=== PATIENT | male | born 1995 | race Caucasian/White ===

== ENCOUNTER 2018-09-26 17:30 | Emergency (ER) | payer BC, OTHER ==
[~2018-09-26] VITALS: Ht 172.7 cm; Wt 124.7 kg
[2018-09-26] MEDS ORDERED: RX-MUPIROCIN (BACTROBAN) 2% OINT 22 GM TUBE TOP STA (19:11)
--- NOTE | 2018-09-26 19:17 | ED Upper Extremity ---
General Chief Complaint: Laceration Stated Complaint: R HAND LACERATION Nursing Triage Note: PT REPORTS CUTTING RIGHT TOP OF HAND LAST NIGHT WHILE TRYING TO OPEN A GLASS BOTTLE. PT HAS HAD HAND IN SAME DRESSING LAST NIGHT AND HAD NOT ISSUES WITH BLEEDING. Nursing Sepsis Screen: No Definite Risk History of Present Illness Date Seen by Provider: Sep 26, 2018 Time Seen by Provider: 19:00 Initial Comments 22-year-old male presents with a laceration to the dorsum of his right hand. He is right-hand dominant. This happened at approximately 0300 this morning. He and his friends were intoxicated, so he didn't present until this evening. He cut it on a glass bottle and reports his last tetanus less than 5 years ago. Pain/Injury Location: right hand Method of Injury: incised Allergies and Home Medications Allergies Coded Allergies: No Known Drug Allergies (Unverified , 09/26/18) Home Medications Cephalexin 500 Mg Tablet, 500 MG PO TID Prescribed by: HAMMAD BARAHONA on 09/26/181917 Patient Home Medication List Home Medication List Reviewed: Yes Review of Systems Constitutional: no symptoms reported Skin: see HPI, other (laceration right hand) All Other Systems Reviewed Negative Unless Noted: Yes Past Nwfmpdz-Gfbldj-Vuormf Hx Past Med/Social Hx: Reviewed Nursing Past Med/Soc Hx Patient Social History Alcohol Use: Denies Use Recreational Drug Use: No Type Used: Cigarettes Recent Foreign Travel: No Contact w/Someone Who Travel: No Recent Infectious Disease Expo: No Recent Hopitalizations: No Physical Abuse: No Sexual Abuse: No Immunizations Up To Date Tetanus Booster (TDap): Less than 5yrs Seasonal Allergies Seasonal Allergies: No Past Medical History Respiratory: No Cardiac: No Neurological: No Genitourinary: No Gastrointestinal: No Musculoskeletal: No Endocrine: No HEENT: No Cancer: No Psychosocial: No Integumentary: No Blood Disorders: No Physical Exam Vital Signs Vital Signs - First Documented 09/26/18 17:37 Temp 97.0 Pulse 114 Resp 16 B/P (MAP) 166/100 (122) Pulse Ox 98 Capillary Refill : Less Than 3 Seconds Height, Weight, BMI Height: 5'8.00" Weight: 275lbs. oz. 124.909954yg; BMI Method:Stated General Appearance: WD/WN, no apparent distress Neck: non-tender, full range of motion, supple, normal inspection Cardiovascular: normal peripheral pulses, regular rate, rhythm, no murmur Respiratory: chest non-tender, lungs clear, normal breath sounds Hand: normal ROM, Right, laceration (4 cm x 2 cm, dorsum), soft tissue tendern ess Neurologic/Psychiatric: no motor/sensory deficits, alert, normal mood/affect, oriented x 3 Skin: normal color, warm/dry Progress/Results/Core Measures Results/Orders My Orders Orders - HAMMAD BARAHONA Rx-Mupirocin 2% Oint (Rx-Bactroban) (09/26/18 19:11) Vital Signs/I&O 09/26/18 09/26/18 17:37 19:34 Temp 97.0 97.0 Pulse 114 114 Resp 16 16 B/P (MAP) 166/100 (122) 166/100 (122) Pulse Ox 98 98 Blood Pressure Mean: 122 Progress Progress Note : Time: 19:00 Progress Note Patient seen and evaluated, laceration irrigated with 500 ML's of sterile saline with Hibiclens. Bactroban ointment applied and sterile bulky dressing. Discussed with the patient that he is beyond the time limit for closure of the wound. He will need to close by secondary intentions. He understands the risk of infection with this is great. Stressed the importance of him establishing care at [facility] or [facility] for wound care. Discharge instructions and return precautions were reviewed with him. Departure Impression Primary Impression: Laceration of right hand Qualified Codes: S61.411A - Laceration without foreign body of right hand, initial encounter Disposition: 01 HOME, SELF-CARE Condition: Improved Departure-Patient Inst. Decision time for Depature: 19:15 Referrals: NO,LOCAL PHYSICIAN (PCP/Family) Primary Care Physician Patient Instructions: Wound Care (DC) Add. Discharge Instructions: Keep wound clean and dry. Do not immerse it in a bathtub, hot tub, swimming pool, river, [place] or any other standing water. Clean wound 3 times daily with peroxide and apply antibiotic ointment. Follow-up at [facility] or [facility] for wound care. Take antibiotics as prescribed. Return to the emergency department for new, urgent health care needs. All discharge instructions reviewed with patient and/or family. Voiced understanding. Scripts Cephalexin (Cephalexin) 500 Mg Tablet 500 MG PO TID, #21 TAB 0 Refills Prov: HAMMAD BARAHONA 09/26/18 Copy Copies To 1: AIME PRABHAKAR MD, AMY ARNP Sep 26, 2018 19:16
[2018-09-26] MEDS ORDERED: CEPH500T PO (19:18)
[2018-09-26 19:34] VITALS: BP 166/100
--- OUTSIDE RECORDS SUMMARY | 2018-09-26 23:30 | XMS REPORT ---
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
--- OUTSIDE RECORDS SUMMARY | 2018-09-26 23:30 | XMS REPORT ---
Author Author Miko Cote Organization eClinicalWorks Address Unknown Phone Unavailable Care Team Providers Care Captain Waiter Name Role Phone Miko Cote CP Unavailable Allergies, Adverse Reactions, Alerts Substance Reaction Event Type N.K.D.A. Info Not Available Non Drug Allergy Problems Problem Type Condition ICD-9 Code Onset Dates Condition Status Problem Idiopathic scoliosis 737.30 Active Assessment Routine infant or child health check V20.2 Active Problem Chest tightness 786.59 Active Medications No Known Medications Procedures Procedure Coding System Code Date PREV MED 1217 YRS CPT-4 66368 Nov 11, 2014 Vital Signs Date/Time: Nov 11, 2014 Blood Pressure Systolic 132 mm Hg Ht Percentile 43.49 % Height 68.5 in Weight 237 lbs BMI 35.51 Index Oximetry 98 % Cardiac Monitoring Heart Rate 101 /min Blood Pressure Diastolic 84 mm Hg BMIPercentile 99.27 % Wt Percentile 99.27 % Results No Known Results Summary Purpose eClinicalWorks Submission
--- OUTSIDE RECORDS SUMMARY | 2018-09-26 23:30 | XMS REPORT ---
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
--- OUTSIDE RECORDS SUMMARY | 2018-09-26 23:30 | XMS REPORT ---
Author Author Miko Cote [facility] eClinicalWorks Address Unknown Phone Unavailable Care Team Providers Care Electric Tape Slitter Name Role Phone Miko Cote CP Unavailable Allergies, Adverse Reactions, Alerts Substance Reaction Event Type N.K.D.A. Info Not Available Non Drug Allergy Problems Problem Type Condition ICD-9 Code Onset Dates Condition Status Problem Idiopathic scoliosis 737.30 Active Assessment Routine infant or child health check V20.2 Active Problem Chest tightness 786.59 Active Assessment Weight gain 783.1 Active Assessment Knee pain 719.46 Active Medications No Known Medications Procedures Procedure Coding System Code Date T4 CPT-4 98295 May 13, 2014 TSH CPT-4 96204 May 13, 2014 PREV MED 1217 YRS CPT-4 53238 May 13, 2014 URINALYSIS CPT-4 56483 May 13, 2014 COMP PROFILE CPT-4 79812 May 13, 2014 CBC CPT-4 87339 May 13, 2014 Vital Signs Date/Time: May 13, 2014 Temperature 98.3 F Height 68.5 in Weight 242 lbs Ht Percentile 47.74 % BMIPercentile 99.38 % Wt Percentile 99.56 % BMI 36.26 Index Results No Known Results Summary Purpose eClinicalWorks Submission
--- OUTSIDE RECORDS SUMMARY | 2018-09-26 23:30 | XMS REPORT ---
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
--- OUTSIDE RECORDS SUMMARY | 2018-09-26 23:30 | XMS REPORT ---
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 Assessment Elevated liver enzymes R74.8 Active Medications No Known Medications Procedures Procedure Coding System Code Date COMP PROFILE CPT-4 14085 October 13, 2015 Results Name Result Date Reference Range Unit Abnormality Flag COMPREHENSIVE CHEM PROFILE ----TOTAL PROTEIN 7.1 [id number] 5.9-8.4 G/DL ----ALK PHOS 71 [id number] 34-114 U/L ----GLOBULIN 2.8 [id number] 2.0-4.4 G/DL ----ALBUMIN 4.3 [id number] 3.2-5.2 G/DL ----CHLORIDE 101 [id number] 96-108 MMOL/L ----POTASSIUM 4.1 [id number] 3.3-5.1 MMOL/L ----SODIUM 141 [id number] 133-145 MMOL/L ----TOTAL BILI 0.69 [id number] 0.00-1.00 MG/DL ----eGFR If Non Am 127 [id number] ml/min/1.73m^2 ----CALCIUM 9.3 [id number] 8.7-10.3 MG/DL ----CO2 27 [id number] 23-31 MMOL/L ----ALT/SGPT 45 [id number] 5-40 U/L H ----AST/SGOT 40 [id number] 5-40 U/L ----GLUCOSE 87 [id number] 60-99 MG/DL ----BUN 16 [id number] 5-18 MG/DL ----CREATININE 0.8 [id number] 0.5-1.2 MG/DL ----eGFR If Am 154 [id number] ml/min/1.73m^2 Summary Purpose eClinicalWorks Submission
--- OUTSIDE RECORDS SUMMARY | 2018-09-26 23:30 | XMS REPORT ---
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
--- OUTSIDE RECORDS SUMMARY | 2018-09-26 23:30 | XMS REPORT ---
Author Author Miko Cote [facility] eClinicalWorks Address Unknown Phone Unavailable Care Team Providers Care Traffic Superintendent Name Role Phone Miko Cote Unavailable Allergies No Known Allergies Problems Problem Type Condition Code Onset Dates Condition Status Problem Idiopathic scoliosis 737.30 Active Problem Chest tightness 786.59 Active Medications No Known Medications Results No Known Results Summary Purpose eClinicalWorks Submission
--- OUTSIDE RECORDS SUMMARY | 2018-09-26 23:30 | XMS REPORT ---
Author Author JACOBO MIGUEL [facility] Address [address] [place] [address] Care Team Providers Care Mechanical Engineering [employer] Name Role Phone JACOBO MIGUEL Unavailable PROBLEMS Unknown Problems ALLERGIES No Information ENCOUNTERS Encounter Location Date Diagnosis [facility] [address] [facility] [id number] [address] Sep, Encounter for immunization Z23 IMMUNIZATIONS Vaccine Route Administration Date Status MENINGOCOCCAL (MENVEO) IM Intramuscular October 05, 2016 Administered SOCIAL HISTORY Never Assessed REASON FOR VISIT Immunization-[facility] WELDER APPRENTICE AR[employer]/NETWORK SECURITY ENGINEER PLAN OF CARE Activity Details Follow Up prn Reason: VITAL SIGNS MEDICATIONS Unknown Medications RESULTS No Results PROCEDURES Procedure Date Ordered Result Body Site MENINGOCOCCAL (MENVEO) October 05, 2016 SINGLE IMMUNIZATION ADMIN October 05, 2016 INSTRUCTIONS MEDICATIONS ADMINISTERED No Known Medications
--- OUTSIDE RECORDS SUMMARY | 2018-09-26 23:30 | XMS REPORT ---
Author Author Demario Tay [facility] eClinicalWorks Address Unknown Phone Unavailable Care Team Providers Care Saxophone Teacher Name Role Phone Demario Tay CP Unavailable Allergies, Adverse Reactions, Alerts Substance Reaction Event Type N.K.D.A. Info Not Available Non Drug Allergy Problems Problem Type Condition Code Onset Dates Condition Status Assessment Segmental and somatic dysfunction of pelvic region M99.05 Active Assessment Segmental and somatic dysfunction of sacral region M99.04 Active Problem Idiopathic scoliosis 737.30 Active Assessment Rib pain R07.81 Active Problem Chest tightness 786.59 Active Assessment Segmental and somatic dysfunction of rib cage M99.08 Active Assessment Segmental and somatic dysfunction of lumbar region M99.03 Active Assessment Immunization due Z23 Active Assessment Segmental and somatic dysfunction of cervical region M99.01 Active Medications No Known Medications Procedures Procedure Coding System Code Date OMT 56 REG CPT-4 97849 Mar 10, 2015 Influenza (6 months to Adult) CPT-4 70220 Mar 10, 2015 Vital Signs Date/Time: Mar 10, 2015 Blood Pressure Systolic 110 mm Hg Height 68.5 in Weight 236.6 lbs Wt Percentile 99.12 % BMI 35.45 Index Temperature 97.3 F Blood Pressure Diastolic 80 mm Hg Ht Percentile 41.39 % BMIPercentile 99.24 % Results No Known Results Immunizations Vaccine Administration Date Influenza (6 months to Adult) Mar 10, 2015 Summary Purpose eClinicalWorks Submission
== END 2018-09-26 19:34 | disposition home or self-care (01) ==
LOC: ER 17:32
DX: S61.411A Laceration without foreign body of right hand, initial encounter (principal); W25.XXXA Contact with sharp glass, initial encounter